=== PATIENT | male | born 1980 | race Caucasian/White ===

== ENCOUNTER 2019-07-30 18:34 | Emergency (ER) | payer OTHER ==
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
[2019-07-30 20:12] VITALS: BP 112/68; PULSE 85
[2019-07-30 20:14] VITALS: O2SAT 99
--- NOTE | 2019-07-31 08:42 | XRAY ---
Indication: Pain and swelling following injury. Comparison: None 3 views of the left hand demonstrates minimally displaced 5th metatarsal shaft oblique fracture with soft tissue swelling. No other bony, articular, or soft tissue abnormalities.
== END 2019-07-30 20:16 | disposition home or self-care (01) ==
LOC: ED 18:34
DX: S62.307A Unspecified fracture of fifth metacarpal bone, left hand, initial encounter for closed fracture (principal); Y04.2XXA Assault by strike against or bumped into by another person, initial encounter; Y93.89 Activity, other specified; Y92.9 Unspecified place or not applicable; Z95.0 Presence of cardiac pacemaker
CPT/HCPCS: 29126; 73130; 99283

== ENCOUNTER 2024-03-04 08:46 | Emergency (ER) | payer OTHER ==
[2024-03-04 09:02] VITALS: PULSE 84; RESP 16; TEMP 98.7
--- NOTE | 2024-03-04 09:09 | ERPHSYRPT ---
- History of Present Illness Time Seen by Provider: 03/04/24 09:05 Historian: patient Exam Limitations: no limitations Patient Subjective Stated Complaint: abd pain Triage Nursing Assessment: patient states that he's had an umbilical hernia for some time now. he now is experiencing pain at the herniated sight. he has vomitted with mild bloody emesis. not passing much gas. last normal BM 03/02/24 early in the morning. 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 LLQ has hypoactive sounds. all other quads sound normal. Physician History: 44yo m presents by private vehicle for abdominal pain x 1d. Pt reports he has umbilical hernia that develop about 8wks ago. Pt states he had 1 episode of vomiting last night after dinner that he reports was blood tinged. Pt reports the pain is epigastric in nature, reports he has been burping a lot and having a lot of reflux symptoms. Pt denies any diarrhea, reports his last BM was yesterday morning, has passed some flatus today. Pt reports no PO intake today. 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 Pt denies any fevers, recent alcohol use, sob, cp. Hx of appendectomy. Timing/Duration: yesterday Activities at Onset: none Quality: burning Abdominal Pain Onset Location: epigastric, periumbilical Pain Radiation: no radiation Severity of Pain-Max: moderate Severity of Pain-Current: moderate Modifying Factors: Improves With: nothing Associated Symptoms: heartburn, nausea, vomiting, No back, No chest pain, No diaphoresis, No diarrhea, No fever/chills Allergies/Adverse Reactions: No Known Drug Allergies Allergy (Unverified 07/30/19 18:39) Home Medications: Semaglutide [Wegovy] 0.25 mg SQ WEEKLY 03/04/24 [History] Hx Influenza Vaccination/Date Given: No Hx Pneumococcal Vaccination/Date Given: No Travel Risk - International Travel Have you traveled outside of the country in past 3 weeks: No - Emerging Infectious Disease Symptoms: Abdominal Pain - Review of Systems Constitutional: No Fever, No Chills, No Weakness Respiratory: No Symptoms Cardiac: No Chest Pain, No Edema, No Palpitations, No Syncope Abdominal/Gastrointestinal: Abdominal Pain, Nausea, Vomiting, No Diarrhea, No Hematemesis, No Hematochezia Genitourinary Symptoms: No Symptoms - Past Medical History Pertinent Past Medical History: Yes Cardiac History: Other GI Medical History: Hernia Other Medical History: neurocardio syncope, has a pacemaker - Past Surgical History Past Surgical History: Yes Cardiac: Pacemaker Gastrointestinal: Appendectomy - Social History Smoking Status: Never smoker Exposure to second hand smoke: No Drug Use: none Patient Lives Alone: No - Nursing Vital Signs Nursing Vital Signs: Initial Vital Signs Temperature 98.7 F 03/04/24 08:51 Pulse Rate 84 03/04/24 08:51 Respiratory Rate 16 03/04/24 08:51 Blood Pressure 139/87 03/04/24 08:51 O2 Sat by Pulse Oximetry 95 03/04/24 08:51 Pain Scale Pain Intensity 3 - Physical Exam General Appearance: no apparent distress, alert Respiratory Exam: normal breath sounds, lungs clear, airway intact, No chest tenderness, No respiratory distress Cardiovascular Exam: regular rate/rhythm, normal heart sounds Gastrointestinal/Abdomen Exam: soft, normal bowel sounds, tenderness (mild TTP over epigatric region, periumbilical region), hernia (reducible, umbilical), No distention, No mass, No guarding, No rebound Neurologic Exam: alert, oriented x 3, cooperative SpO2: 95 - Course EKG Interpreted by Me: RATE (84), Sinus Rhythm, Other (qtcb 391, not suggestive of acute ischemia) Ordered Tests: Active Orders 24 hr Category Date Time Status EKG-ER Only STAT Care 03/04/24 09:14 Active ABDOMEN AND PELVIS W CONTRAST [CT] Stat Exams 03/04/24 09:08 Completed CBC W DIFF Stat Lab 03/04/24 09:20 Completed CMP Stat Lab 03/04/24 09:20 Completed LIPASE Stat Lab 03/04/24 09:20 Completed TROPONIN Q4H Lab 03/04/24 09:20 Completed TROPONIN Q4H Lab 03/04/24 13:15 Ordered TROPONIN Q4H Lab 03/04/24 17:15 Ordered UA W/RFX UR CULTURE Stat Lab 03/04/24 09:08 Ordered Medication Summary Discontinued Medications Generic Name Dose Route Start Last Admin Trade Name Freq PRN Reason Stop Dose Admin Sodium Chloride 1,000 mls @ 999 mls/hr 03/04/24 09:08 03/04/24 09:47 Sodium Chloride 0.9% 1000 Ml IV 03/04/24 10:08 999 mls/hr .Q1H1M STA Administration Sodium Chloride Confirm 03/04/24 09:30 Sodium Chloride 0.9% 1000 Ml Administered 03/04/24 09:31 Dose 1,000 mls @ ud .ROUTE .STK-MED ONE Ondansetron HCl 4 mg 03/04/24 09:15 03/04/24 09:47 Ondansetron Hcl 4 Mg/2 Ml Vial IV 03/04/24 09:16 4 mg STAT ONE Administration Ondansetron HCl Confirm 03/04/24 09:30 Ondansetron Hcl 4 Mg/2 Ml Vial Administered 03/04/24 09:31 Dose 4 mg .ROUTE .STK-MED ONE Pantoprazole Sodium 40 mg 03/04/24 10:11 03/04/24 10:33 Pantoprazole 40 Mg Vial IV 03/04/24 10:12 40 mg STAT ONE Administration Pantoprazole Sodium Confirm 03/04/24 10:31 Pantoprazole 40 Mg Vial Administered 03/04/24 10:32 Dose 40 mg IV .STK-MED ONE Lab/Rad Data: Laboratory Result Diagrams 03/04/24 09:20 03/04/24 09:20 Laboratory Results 03/04/24 03/04/24 03/04/24 Range/Units 09:20 09:20 09:20 WBC 4.4 (4.23-9.07) x10^3/uL RBC 4.91 (4.63-6.08) x10^6/uL Hgb 14.6 (13.7-17.5) g/dL Hct 42.2 (40.1-51.0) % MCV 85.9 (79.0-92.2) fL MCH 29.7 (25.7-32.2) pg MCHC 34.6 (32.3-36.5) g/dL RDW 12.5 (11.6-14.4) % Plt Count 172 (163-337) x10^3/uL MPV 9.0 L (9.4-12.4) fL Gran % 83.5 H (34.0-67.9) % Immature Gran % (Auto) 0.2 (0.001-0.429) % Nucleat RBC Rel Count 0.0 (0.00-0.2) % Eos # (Auto) 0.07 (0.04-0.54) x10^3/uL Immature Gran # (Auto) 0.01 (0.001-0.031) x10^3u/L Absolute Lymphs (auto) 0.40 L (1.32-3.57) x10^3/uL Absolute Monos (auto) 0.24 L (0.30-0.82) x10^3/uL Absolute Nucleated RBC 0.00 (0.00-0.012) x10^3u/L Lymphocytes % 9.1 L (21.8-53.1) % Monocytes % 5.4 (5.3-12.2) % Eosinophils % 1.6 (0.8-7.0) % Basophils % 0.2 (0.2-1.2) % Absolute Granulocytes 3.68 (1.78-5.38) x10^3/uL Basophils # 0.01 (0.01-0.08) x10^3/uL Sodium 138 (135-145) mmol/L Potassium 4.4 (3.5-5.1) mmol/L Chloride 105 (98-107) mmol/L Carbon Dioxide 25 (22-30) mmol/L Anion Gap 12.0 (5-15) MEQ/L BUN 20 (9-20) mg/dL Creatinine 1.08 (0.66-1.25) mg/dL Estimated GFR 87.3 ML/MIN Glucose 104 (74-106) mg/dL Calcium 9.2 (8.4-10.2) mg/dL Total Bilirubin 1.20 (0.2-1.3) mg/dL AST 33 (17-59) U/L ALT 30 (0-50) U/L Alkaline Phosphatase 58 (38-126) U/L Troponin I < 0.012 (0.000-0.033) ng/mL Serum Total Protein 7.5 (6.3-8.2) g/dL Albumin 4.3 (3.5-5.0) g/dL Lipase 106 (23-300) U/L - Progress Progress: improved, pain not gone completely Progress Note: 03/04/24 12:01 CT abd/pel 1. A mild umbilical hernia containing omental fat is seen. 2. Mild splenomegaly is noted, measuring 12.0x4.3x12.8 cm. A few small calcifications measuring 0.1x0.2 cm are noted in the parenchyma. 3. A few small non-obstructing calculi measuring 0.3x0.2 cm are noted in both calyxes. No hydronephrosis was seen on either side. 4. A cystic area measuring 2.4x2.0 cm seen on the posterior aspect of the right kidney could be a simple cortical cyst. 5. A cystic area measuring 0.6x0.7 cm seen in the right kidney could be a simple parenchymal cyst. 6. Retroaortic left renal vein is noted. 7. Moderate lumbar spine degenerative changes. sx improved w/ zofran and protonix sx likely 2/2 GERD vs slow GI transit 2/2 GLP1 medication plan for dc home w/ daily protonix prescription pt has f/u scheduled w/ PCP Dr Hess on 03/06/24 Instructed to use OTC miralax daily for constipation recommend bland diet, oral hydration w/ clear liquids return to ED if: develop fevers, abdominal pain becomes unbearable, unable to tolerate oral intake Counseled pt/family regarding: lab results, diagnosis, need for follow-up, rad results Medical Desision Making - Diagnostic Testing Diagnostic test were ordered, analyzed, and reviewed by me: Yes Radiological Interpretation: Reviewed by me, Teleradiologist Report - Risk of complications Minimal Risk: Minimal risk of morbidity - Departure Departure Disposition: Home Clinical Impression: Epigastric pain Acid reflux Qualifiers: Esophagitis presence: esophagitis presence not specified Qualified Code(s): K21.9 - Gastro-esophageal reflux disease without esophagitis Constipation Qualifiers: Constipation type: unspecified constipation type Qualified Code(s): K59.00 - Constipation, unspecified Condition: Stable Critical Care Time: No Referrals: TRELL HARDWICK [NON-STAFF PHY W/O PRIVILEGES] - Follow up/PCP as directed Additional Instructions: plan for dc home w/ daily protonix prescription pt has f/u scheduled w/ PCP Dr Hess on 03/06/24 Instructed to use OTC miralax daily for constipation recommend bland diet, oral hydration w/ clear liquids return to ED if: develop fevers, abdominal pain becomes unbearable, unable to tolerate oral intake Prescriptions: PANTOPRAZOLE 40 mg Tablet [Protonix 40MG Tablet] 40 mg PO QAM 14 Days #14 tab
[2024-03-04] MEDS ORDERED: Sodium Chloride 0.9% 1000 ML 1,000 ML ONE (09:30)
[2024-03-04] MEDS ORDERED: Zofran 4 MG/2 ML VIAL ONE (09:30)
[2024-03-04 09:37] LABS: Absolute Neutrophil Ct (ANC) 3.68 x10^3/uL (1.78-5.38); BASOPHIL % 0.2 % (0.2-1.2); Basophil (Absolute #) 0.01 x10^3/uL (0.01-0.08); Eosinophil % 1.6 % (0.8-7.0); Eosinophil (Absolute #) 0.07 x10^3/uL (0.04-0.54); Hematocrit 42.2 % (40.1-51.0); Hemoglobin 14.6 g/dL (13.7-17.5); IMMATURE GRAN # 0.01 x10^3u/L (0.001-0.031); IMMATURE GRAN % 0.2 % (0.001-0.429); Lymphocytes % 9.1 % (21.8-53.1); Mean Cell Volume 85.9 fL (79.0-92.2); Mean Corpuscular Hemoglobin 29.7 pg (25.7-32.2); Mean Corpuscular Hgb Concent. 34.6 g/dL (32.3-36.5); Monocyte (Absolute #) 0.24 x10^3/uL (0.30-0.82); Monocytes % 5.4 % (5.3-12.2); Neutrophil % 83.5 % (34.0-67.9); Platelet Count 172 x10^3/uL (163-337); Red Blood Count 4.91 x10^6/uL (4.63-6.08); Red Cell Distribution Width 12.5 % (11.6-14.4); White Blood Count 4.4 x10^3/uL (4.23-9.07)
[2024-03-04] MEDS: Sodium Chloride 0.9% 1000 ML 1,000 ML IV STA (09:47)
[2024-03-04] MEDS: Zofran 4 MG/2 ML VIAL IV ONE (09:47)
[2024-03-04 09:49] LABS: ALBUMIN 4.3 g/dL (3.5-5.0); BILIRUBIN,TOTAL 1.2 mg/dL (0.2-1.3); Calcium 9.2 mg/dL (8.4-10.2); Creatinine 1 1.08 mg/dL (0.66-1.25); EST GLOMERULAR FILTRATION RATE 87.3 ML/MIN; Potassium 4.4 mmol/L (3.5-5.1); Total Protein 7.5 g/dL (6.3-8.2)
[2024-03-04] MEDS ORDERED: PROTONIX 40 MG IV IV ONE (10:31)
[2024-03-04] MEDS: PROTONIX 40 MG IV IV ONE (10:33)
[2024-03-04 11:17] VITALS: O2SAT 95
--- NOTE | 2024-03-04 11:17 | XRAY ---
CLINICAL HISTORY: abdominal pain, hernia COMPARISON: None. TECHNIQUE: CT scan of the abdomen and pelvis was performed with IV contrast. Coronal and sagittal reconstructive images were also obtained. Multiple axial CT images were obtained through the abdomen and pelvis with coronal and sagittal reformat images without IV contrast material. Bowel loops are opacified by prior administration of oral contrast. One of the following dose reduction techniques were utilized for this exam: Automated exposure control, adjustment of the mA and/or kV according to patient size, use of iterative reconstruction. FINDINGS: The liver is normal in size, morphology, and position. The liver appears unremarkable with no intrahepatic or extrahepatic bile duct dilation. Gallbladder appears normal with no obvious stones wall thickening or pericholecystic inflammatory changes or fluid. Unremarkable appearing pancreas. No pancreatic mass or ductal dilatation is seen. Mild splenomegaly is noted, measuring 12.0x4.3x12.8 cm. Few small calcifications measuring 0.1x0.2 cm are noted in the parenchyma. Adrenal glands are normal. Mild umbilical hernia containing omental fat is seen. Both kidneys are normal in size, shape and orientation. Few small non-obstructing calculi measuring 0.1x0.2 cm are noted in both calyxes. No hydronephrosis seen on either side. Cystic area measuring 2.4x2.0 cm seen on the posterior aspect of the right kidney could be a simple cortical cyst. Cystic area measuring 0.8x0.7 cm seen in the right kidney could be a simple parenchymal cyst. Both ureters and urinary bladder appear normal. Retroaortic left renal vein is noted. Stomach and small bowel loops are unremarkable. The appendix is normal. Caecum and ileocecal junction appear normal. Large bowel loops appear normal without evidence of bowel obstruction. Rectum appear normal. No evidence of significant enlargement of the mesenteric or retroperitoneal lymph nodes. Unremarkable abdominal aorta without specific evidence of aneurysm. IVC is normal. Moderate lumbar spine degenerative changes. Basal lung are unremarkable. IMPRESSION: 1. A mild umbilical hernia containing omental fat is seen. 2. Mild splenomegaly is noted, measuring 12.0x4.3x12.8 cm. A few small calcifications measuring 0.1x0.2 cm are noted in the parenchyma. 3. A few small non-obstructing calculi measuring 0.3x0.2 cm are noted in both calyxes. No hydronephrosis was seen on either side. 4. A cystic area measuring 2.4x2.0 cm seen on the posterior aspect of the right kidney could be a simple cortical cyst. 5. A cystic area measuring 0.6x0.7 cm seen in the right kidney could be a simple parenchymal cyst. 6. Retroaortic left renal vein is noted. 7. Moderate lumbar spine degenerative changes. Electronically Signed by: Alma Delia Jesus MD. (03/04/2024 11:13:49 EDT)
[2024-03-04 12:06] VITALS: BP 117/79
[2024-03-04 12:54] LABS: Slide Review 1 YES
== END 2024-03-04 12:12 | disposition home or self-care (01) ==
LOC: ED 08:46
DX: K21.9 Gastro-esophageal reflux disease without esophagitis (principal); K59.00 Constipation, unspecified; R10.13 Epigastric pain; Z79.85 Long-term (current) use of injectable non-insulin antidiabetic drugs; Z79.899 Other long term (current) drug therapy
CPT/HCPCS: 36415; 74177; 80053; 83690; 84484; 85025; 93005; 96360; 96374; 96375; 99284; J2405